=== PATIENT | female | born 1955 | race Caucasian/White ===

== ENCOUNTER 2017-06-04 09:53 | Inpatient (IN) ==
[2017-06-04 11:08] LABS: Nucleated Red Blood Cells 0.4 /100 WBC (0)
[2017-06-04 11:09] LABS: Eosinophils # 0.1 K/mcL (0.0-0.6); Hematocrit 23.4 % (35.3-44.9); Lymphocytes # 1.5 K/mcL (0.6-4.6); Mean Corpuscular HGB Conc 27.8 g/dL (31.6-35.5); Mean Corpuscular Hemoglobin 20.8 pg (28.0-33.3); Mean Platelet Volume 9.4 fL (9.4-12.4); Platelet Count 438 K/mcL (140-400); Red Blood Count 3.12 M/mcL (3.82-4.97); Red Cell Distribution Width 17.8 % (11.5-14.5)
--- NOTE | 2017-06-04 11:10 | Emergency Department Note ---
Disposition Clinical Impression: Severe anemia Disposition: Still a Patient Referrals: Natty Cordon CNP [Primary Care Provider] - Forms: ED Satisfaction Letter General Adult HPI - General Chief complaint: ED Recheck/Abnormal Lab/Rx Stated complaint: "needs transfusion" Time Seen by Provider: 06/04/17 09:54 Source: patient Limitations: no limitations Nursing Notes Reviewed: Yes Vital Signs Reviewed: Yes - History of Present Illness Pain Scale: 0 - Related Data Home Medications Medication Instructions Recorded Confirmed Aspirin [Lo-Dose Aspirin EC] 81 mg PO DAILY 06/04/17 06/04/17 Atorvastatin [Lipitor] 10 mg PO HS 06/04/17 06/04/17 Calcium Carbonate/Vitamin D3 1 tab PO DAILY 06/04/17 06/04/17 [Calcium 500 mg Chewable Tablet] Cranberry 500 mg PO DAILY 06/04/17 06/04/17 Mv,Fe,Min/Lutein [A Thru Z Select 1 tab PO DAILY 06/04/17 06/04/17 Women's Tablet] [place]-3/Dha/Epa/Fish Oil [Fish Oil 1 cap PO DAILY 06/04/17 06/04/17 1,000 mg Softgel] Allergies Allergy/AdvReac Type Severity Reaction Status Date / Time naproxen AdvReac Vomiting Verified 06/04/17 12:32 Blood Past Medical History - Past Medical History Medical history: Reports: hyperlipidemia, hypertension Psychiatric history: Reports: no psych history - Social History Smoking Status: Never smoker Smokeless Tobacco Status: No Alcohol use: Reports: none Drug use: Reports: none Physical Exam - General Limitations: no limitations General appearance: alert, appears intoxicated Course Vital Signs Temperature 98.3 F 06/04/17 10:09 Pulse Rate 82 06/04/17 10:09 Respiratory Rate 18 06/04/17 10:09 Blood Pressure 162/77 06/04/17 10:09 O2 Sat by Pulse Oximetry 97 06/04/17 10:09 Temperature 98.6 F 06/04/17 13:13 Pulse Rate 73 06/04/17 13:13 Respiratory Rate 18 06/04/17 13:13 Blood Pressure 164/89 06/04/17 13:13 O2 Sat by Pulse Oximetry 99 06/04/17 13:13 Oxygen Delivery Oxygen Delivery Room Air Medical Decision Making - MDM Narrative Medical decision making narrative: This documentation is done with the assistance of Dragon dictation. Despite efforts made to ensure accuracy, there may be inaccuracies in buffer chrome or spelling and typographical errors. Patient comes in today with need for transfusion. Had blood count drawn in her doctor's office and hemoglobin was below 7. Police had this happen in the past but is not certain why. She no history of GI bleeding per her. No trauma. Regular workup on her order blood and then she will need admission. She is in agreement with this plan. She is stable at this time. Abdomen/Pelvis CT 06/04/17 11:19 IMPRESSION: 1. No acute findings within the abdomen or pelvis. Colonic diverticulosis with no acute features. No CT evidence of appendicitis. 2. Moderate-sized hiatal hernia. 3. Previous hysterectomy. D/ / 06/04/2017 13:11:31 Ashish Reyna MD / jeevan Interpreting Provider: Ashish Reyna MD CT is completed and shows no acute pathology. Reglan bring her into the hospital to finish her transfusion and further workup for GI bleeding. She is in agreement with this plan. She is tolerating the blood at this point is stable. - Lab Data Result diagrams: 06/04/17 10:44 06/04/17 10:44 Lab Results 06/04/17 06/04/17 06/04/17 Range/Units 10:44 10:44 10:44 WBC 5.2 (4.3-11.1) K/mcL RBC 3.12 L (3.82-4.97) M/mcL Hgb 6.5 L (11.5-15.4) g/dL Hct 23.4 L (35.3-44.9) % MCV 75.0 L (83.0-100.0) fL MCH 20.8 L (28.0-33.3) pg MCHC 27.8 L (31.6-35.5) g/dL RDW 17.8 H (11.5-14.5) % Plt Count 438 H (140-400) K/mcL MPV 9.4 (9.4-12.4) fL Immature Gran % Test Not Performed Seg Neutrophils % 66.0 % Lymphocytes % 28.0 % Monocytes % 4.0 % Eosinophils % 2.0 % Basophils % Test Not Performed Neutrophils # 3.4 (1.6-8.9) K/mcL Lymphocytes # 1.5 (0.6-4.6) K/mcL Monocytes # 0.2 (0.0-1.3) K/mcL Eosinophils # 0.1 (0.0-0.6) K/mcL Basophils # Test Not Performed Nucleated RBCs/100 WBC 0.4 H (0) /100 WBC Platelet Estimate Slight increase H (Normal) Polychromasia 1+ A (Not Present) Hypochromasia Present A (Not Present) Anisocytosis 1+ A (Not Present) Microcytosis Present A (Not Present) Sodium 140 (136-145) mEq/L Potassium 3.4 L (3.5-5.1) mEq/L Chloride 107 (98-107) mEq/L Carbon Dioxide 25 (23-29) mEq/L BUN 17 (8-23) mg/dL Creatinine 0.72 (0.60-1.20) mg/dL Est GFR ( Amer) > 60 (> 60) Est GFR (Non-Af Amer) > 60 (> 60) BUN/Creatinine Ratio 24 (6-26) Glucose 124 H (70-105) mg/dL Calculated Osmolality 293 (280-300) Calcium 9.0 (8.6-10.3) mg/dL Troponin I < 0.03 (< 0.04) ng/mL Urine Color (Yellow) Urine Clarity (Clear) Urine pH (5.0-8.0) pH Units Ur Specific [place] (1.010-1.025) Urine Protein (Neg-Trace) mg/dL Urine Glucose (UA) (Normal) mg/dL Urine Ketones (Negative) mg/dL Urine Blood (Negative) Urine Nitrite (Negative) Urine Bilirubin (Negative) Urine Urobilinogen (Normal) mg/dL Ur Leukocyte Esterase (Negative) Urine Microscopic RBC (0-3) per hpf Urine Microscopic WBC (0-3) per hpf Ur Squamous Epith Cells (None-Few) per lpf Urine Bacteria (None-Few) per hpf Hyaline Casts (None-Few) per lpf Blood Type A POSITIVE Antibody Screen NEGATIVE Crossmatch See Detail 06/04/17 Range/Units 12:05 WBC (4.3-11.1) K/mcL RBC (3.82-4.97) M/mcL Hgb (11.5-15.4) g/dL Hct (35.3-44.9) % MCV (83.0-100.0) fL MCH (28.0-33.3) pg MCHC (31.6-35.5) g/dL RDW (11.5-14.5) % Plt Count (140-400) K/mcL MPV (9.4-12.4) fL Immature Gran % Seg Neutrophils % % Lymphocytes % % Monocytes % % Eosinophils % % Basophils % Neutrophils # (1.6-8.9) K/mcL Lymphocytes # (0.6-4.6) K/mcL Monocytes # (0.0-1.3) K/mcL Eosinophils # (0.0-0.6) K/mcL Basophils # Nucleated RBCs/100 WBC (0) /100 WBC Platelet Estimate (Normal) Polychromasia (Not Present) Hypochromasia (Not Present) Anisocytosis (Not Present) Microcytosis (Not Present) Sodium (136-145) mEq/L Potassium (3.5-5.1) mEq/L Chloride (98-107) mEq/L Carbon Dioxide (23-29) mEq/L BUN (8-23) mg/dL Creatinine (0.60-1.20) mg/dL Est GFR ( Amer) (> 60) Est GFR (Non-Af Amer) (> 60) BUN/Creatinine Ratio (6-26) Glucose (70-105) mg/dL Calculated Osmolality (280-300) Calcium (8.6-10.3) mg/dL Troponin I (< 0.04) ng/mL Urine Color Yellow (Yellow) Urine Clarity Clear (Clear) Urine pH 7.0 (5.0-8.0) pH Units Ur Specific [place] 1.010 (1.010-1.025) Urine Protein Negative (Neg-Trace) mg/dL Urine Glucose (UA) Normal (Normal) mg/dL Urine Ketones Negative (Negative) mg/dL Urine Blood Negative (Negative) Urine Nitrite Negative (Negative) Urine Bilirubin Negative (Negative) Urine Urobilinogen Normal (Normal) mg/dL Ur Leukocyte Esterase Small H (Negative) Urine Microscopic RBC 0-3 (0-3) per hpf Urine Microscopic WBC 0-3 (0-3) per hpf Ur Squamous Epith Cells Many H (None-Few) per lpf Urine Bacteria None Seen (None-Few) per hpf Hyaline Casts None Seen (None-Few) per lpf Blood Type Antibody Screen Crossmatch Critical Care Time Critical Care Time: Yes Total Critical Care Time: 35 Attestation: Critical care is excluding any separately billable procedures. Attestation Statement - Attestation Attestation: I examined this patient and my medical decision-making was reviewed with the Resident Physician. I agree with the documented findings, disposition and treatment plan as described except to the extent set forth below. Patient seen and evaluated by Dr. Gonzalez and myself, I agree with his evaluation and management plan, I supervisd the care of the patient's stay.
[2017-06-04 11:17] LABS: Hemoglobin 6.5 g/dL (11.5-15.4)
--- NOTE | 2017-06-04 11:17 | Emergency Department Note ---
Disposition Clinical Impression: Severe anemia Disposition: Admitted As Inpatient Condition: Fair Referrals: Natty Cordon CNP [Primary Care Provider] - Forms: ED Satisfaction Letter Time of Disposition: 14:27 Recheck wound or abnormal lab - General Chief Complaint: ED Recheck/Abnormal Lab/Rx Stated Complaint: "needs transfusion" Time Seen by Provider: 06/04/17 09:54 Source: patient Limitations: no limitations Nursing Notes Reviewed: Yes Vital Signs Reviewed: Yes - History of Present Illness HPI Narrative: Patient is a 62-year-old female who complains of being called by her PCP Natty Cordon CNP contact her today to inform her that her hemoglobin was 6.2. Patient has a prior history of anemia back in March that do not require transfusion, and patient did require transfusions back in 2011 after her orthopedic knee surgeries. Patient states she has never been seen by hematology to workup her history of anemia in the past. Patient states she has been having some lower back pain is worse when bending over across her lower back since March when her anemia started. Patient noticed that she has had some dark-colored stools about a month ago on multiple separate occasions. But none recently. Patient has a history for hypertension, hypercholesterolemia. Patient is a history of colonoscopy 8 years ago that showed polyps and diverticulosis. - Related Data Home Medications Medication Instructions Recorded Confirmed Aspirin [Lo-Dose Aspirin EC] 81 mg PO DAILY 06/04/17 06/04/17 Atorvastatin [Lipitor] 10 mg PO HS 06/04/17 06/04/17 Calcium Carbonate/Vitamin D3 1 tab PO DAILY 06/04/17 06/04/17 [Calcium 500 mg Chewable Tablet] Cranberry 500 mg PO DAILY 06/04/17 06/04/17 Mv,Fe,Min/Lutein [A Thru Z Select 1 tab PO DAILY 06/04/17 06/04/17 Women's Tablet] [place]-3/Dha/Epa/Fish Oil [Fish Oil 1 cap PO DAILY 06/04/17 06/04/17 1,000 mg Softgel] Allergies Allergy/AdvReac Type Severity Reaction Status Date / Time naproxen AdvReac Vomiting Verified 06/04/17 12:32 Blood All systems ED: reviewed and negative except as stated. Review of Systems: As Per HPI Constitutional: Reports: weakness. Denies: fever ENT ED: Denies: congestion Cardiovascular: Denies: chest pain, palpitations Respiratory: Reports: dyspnea Genitourinary: Denies: urgency, dysuria Musculoskeletal: Reports: back pain Endocrine: Reports: fatigue Past Medical History - Past Medical History Attestation: Yes The following information was validated with the patient. Source: patient, nursing notes reviewed Medical history: Reports: hyperlipidemia, hypertension Psychiatric history: Reports: no psych history - Social History Smoking Status: Never smoker Smokeless Tobacco Status: No Alcohol use: Reports: none Drug use: Reports: none Physical Exam Vital Signs Temperature 98.3 F 06/04/17 10:09 Pulse Rate 82 06/04/17 10:09 Respiratory Rate 18 06/04/17 10:09 Blood Pressure 162/77 06/04/17 10:09 O2 Sat by Pulse Oximetry 97 06/04/17 10:09 Temperature 98.3 F 06/04/17 10:09 Pulse Rate 77 06/04/17 10:54 Respiratory Rate 18 06/04/17 10:54 Blood Pressure 163/81 06/04/17 10:54 O2 Sat by Pulse Oximetry 99 06/04/17 10:54 Oxygen Delivery Oxygen Delivery Room Air CONSTITUTIONAL: Well-appearing; well-nourished; A&O X 3, in no apparent distress. Patient has some mild pallor HEAD: Normocephalic; atraumatic EYES: PERRL, no scleral icterus NOSE: The nose is normal in appearance without rhinorrhea NECK: No JVD or distended neck veins RESP: Normal chest excursion with respiration; breath sounds clear and equal bilaterally; no wheezes, rhonchi, or rales CARD: Regular rhythm, without murmurs, rub or gallop ABD: Non-distended; non-tender, soft, without rigidity, rebound or guarding,no pulsatile mass CHEST: No pain with palpation SKIN: Normal for age and race; warm and dry without diaphoresis ; no apparent lesions EXTREMITIES: Pulses are 2 plus and equal times 4 extremities, no peripheral edema or calf muscle pain capillary refill greater than 2 - General Limitations: no limitations General appearance: alert, appears intoxicated Course - Reevaluation(s) Reevaluation #1: Patient is currently comfortable. No complaints at this time. Patient's blood products have been ordered. Time: 11:50 Reevaluation #2: Hemoccult test negative for GI bleed. Time: 11:57 Reevaluation #3: Patient is currently receiving second unit of blood. Time: 14:16 Vital Signs Temperature 98.3 F 06/04/17 10:09 Pulse Rate 82 06/04/17 10:09 Respiratory Rate 18 06/04/17 10:09 Blood Pressure 162/77 06/04/17 10:09 O2 Sat by Pulse Oximetry 97 06/04/17 10:09 Temperature 98.4 F 06/04/17 13:48 Pulse Rate 73 06/04/17 13:48 Respiratory Rate 18 06/04/17 13:48 Blood Pressure 193/94 06/04/17 13:48 O2 Sat by Pulse Oximetry 100 06/04/17 13:48 Oxygen Delivery Oxygen Delivery Room Air Recheck wound or abnormal lab - MDM Narrative Medical decision making narrative: Patient has recurring episodes of anemia is never worked up. Patient also complains of some periodic episodes of bloody stools. Patient will require transfusion here in the ED for her severe anemia, patient also concerning for either GI bleed or abdominal cancer and will receive appropriate workup. Patient's labs show a hemoglobin of 6.5. Patient is currently receiving blood transfusion 2 units RBCs. Patient also received 1 L IV normal saline Patient's CT abdomen and pelvis only positive for a hiatal hernia. Patient is otherwise comfortable. Patient patient may be having intermittent GI bleeding but currently has a negative workup. Currently recommend admission and further evaluation concerning patient's acute severe anemia. Patient understands agrees to treatment plan for admission Dr. Trivedi the hospitalist as accepted patient for admission. Patient is currently on her second unit of blood. 80 mg IV Protonix also started. - Lab Data Lab results reviewed: Yes I reviewed the patient's lab results. Lab results narrative: Short CBC 06/04/17 Range/Units 10:44 WBC 5.2 (4.3-11.1) K/mcL Hgb 6.5 L (11.5-15.4) g/dL Hct 23.4 L (35.3-44.9) % Plt Count 438 H (140-400) K/mcL Neutrophils # 3.4 (1.6-8.9) K/mcL BMP 06/04/17 Range/Units 10:44 Sodium 140 (136-145) mEq/L Potassium 3.4 L (3.5-5.1) mEq/L Chloride 107 (98-107) mEq/L Carbon Dioxide 25 (23-29) mEq/L BUN 17 (8-23) mg/dL Creatinine 0.72 (0.60-1.20) mg/dL Glucose 124 H (70-105) mg/dL Calcium 9.0 (8.6-10.3) mg/dL Cardiac Enzymes 06/04/17 Range/Units 10:44 Troponin I < 0.03 (< 0.04) ng/mL Urine 06/04/17 Range/Units 12:05 Urine Color Yellow (Yellow) Urine Clarity Clear (Clear) Urine pH 7.0 (5.0-8.0) pH Units Ur Specific [place] 1.010 (1.010-1.025) Urine Protein Negative (Neg-Trace) mg/dL Urine Glucose (UA) Normal (Normal) mg/dL Result diagrams: 06/04/17 10:44 06/04/17 10:44 Lab Results 06/04/17 06/04/17 06/04/17 Range/Units 10:44 10:44 10:44 WBC 5.2 (4.3-11.1) K/mcL RBC 3.12 L (3.82-4.97) M/mcL Hgb 6.5 L (11.5-15.4) g/dL Hct 23.4 L (35.3-44.9) % MCV 75.0 L (83.0-100.0) fL MCH 20.8 L (28.0-33.3) pg MCHC 27.8 L (31.6-35.5) g/dL RDW 17.8 H (11.5-14.5) % Plt Count 438 H (140-400) K/mcL MPV 9.4 (9.4-12.4) fL Immature Gran % Test Not Performed Seg Neutrophils % 66.0 % Lymphocytes % 28.0 % Monocytes % 4.0 % Eosinophils % 2.0 % Basophils % Test Not Performed Neutrophils # 3.4 (1.6-8.9) K/mcL Lymphocytes # 1.5 (0.6-4.6) K/mcL Monocytes # 0.2 (0.0-1.3) K/mcL Eosinophils # 0.1 (0.0-0.6) K/mcL Basophils # Test Not Performed Nucleated RBCs/100 WBC 0.4 H (0) /100 WBC Platelet Estimate Slight increase H (Normal) Polychromasia 1+ A (Not Present) Hypochromasia Present A (Not Present) Anisocytosis 1+ A (Not Present) Microcytosis Present A (Not Present) Sodium 140 (136-145) mEq/L Potassium 3.4 L (3.5-5.1) mEq/L Chloride 107 (98-107) mEq/L Carbon Dioxide 25 (23-29) mEq/L BUN 17 (8-23) mg/dL Creatinine 0.72 (0.60-1.20) mg/dL Est GFR ( Amer) > 60 (> 60) Est GFR (Non-Af Amer) > 60 (> 60) BUN/Creatinine Ratio 24 (6-26) Glucose 124 H (70-105) mg/dL Calculated Osmolality 293 (280-300) Calcium 9.0 (8.6-10.3) mg/dL Troponin I < 0.03 (< 0.04) ng/mL Urine Color (Yellow) Urine Clarity (Clear) Urine pH (5.0-8.0) pH Units Ur Specific [place] (1.010-1.025) Urine Protein (Neg-Trace) mg/dL Urine Glucose (UA) (Normal) mg/dL Urine Ketones (Negative) mg/dL Urine Blood (Negative) Urine Nitrite (Negative) Urine Bilirubin (Negative) Urine Urobilinogen (Normal) mg/dL Ur Leukocyte Esterase (Negative) Urine Microscopic RBC (0-3) per hpf Urine Microscopic WBC (0-3) per hpf Ur Squamous Epith Cells (None-Few) per lpf Urine Bacteria (None-Few) per hpf Hyaline Casts (None-Few) per lpf Blood Type A POSITIVE Antibody Screen NEGATIVE Crossmatch See Detail 06/04/17 Range/Units 12:05 WBC (4.3-11.1) K/mcL RBC (3.82-4.97) M/mcL Hgb (11.5-15.4) g/dL Hct (35.3-44.9) % MCV (83.0-100.0) fL MCH (28.0-33.3) pg MCHC (31.6-35.5) g/dL RDW (11.5-14.5) % Plt Count (140-400) K/mcL MPV (9.4-12.4) fL Immature Gran % Seg Neutrophils % % Lymphocytes % % Monocytes % % Eosinophils % % Basophils % Neutrophils # (1.6-8.9) K/mcL Lymphocytes # (0.6-4.6) K/mcL Monocytes # (0.0-1.3) K/mcL Eosinophils # (0.0-0.6) K/mcL Basophils # Nucleated RBCs/100 WBC (0) /100 WBC Platelet Estimate (Normal) Polychromasia (Not Present) Hypochromasia (Not Present) Anisocytosis (Not Present) Microcytosis (Not Present) Sodium (136-145) mEq/L Potassium (3.5-5.1) mEq/L Chloride (98-107) mEq/L Carbon Dioxide (23-29) mEq/L BUN (8-23) mg/dL Creatinine (0.60-1.20) mg/dL Est GFR ( Amer) (> 60) Est GFR (Non-Af Amer) (> 60) BUN/Creatinine Ratio (6-26) Glucose (70-105) mg/dL Calculated Osmolality (280-300) Calcium (8.6-10.3) mg/dL Troponin I (< 0.04) ng/mL Urine Color Yellow (Yellow) Urine Clarity Clear (Clear) Urine pH 7.0 (5.0-8.0) pH Units Ur Specific [place] 1.010 (1.010-1.025) Urine Protein Negative (Neg-Trace) mg/dL Urine Glucose (UA) Normal (Normal) mg/dL Urine Ketones Negative (Negative) mg/dL Urine Blood Negative (Negative) Urine Nitrite Negative (Negative) Urine Bilirubin Negative (Negative) Urine Urobilinogen Normal (Normal) mg/dL Ur Leukocyte Esterase Small H (Negative) Urine Microscopic RBC 0-3 (0-3) per hpf Urine Microscopic WBC 0-3 (0-3) per hpf Ur Squamous Epith Cells Many H (None-Few) per lpf Urine Bacteria None Seen (None-Few) per hpf Hyaline Casts None Seen (None-Few) per lpf Blood Type Antibody Screen Crossmatch - Radiology Data Radiology results reviewed: Yes I reviewed the patient's radiology results. Abdomen/Pelvis CT 06/04/17 11:19 IMPRESSION: 1. No acute findings within the abdomen or pelvis. Colonic diverticulosis with no acute features. No CT evidence of appendicitis. 2. Moderate-sized hiatal hernia. 3. Previous hysterectomy. D/ / 06/04/2017 13:11:31 Ashish Reyna MD / jeevan Interpreting Provider: Ashish Reyna MD - EKG Data EKG attestation: Yes I reviewed and interpreted this EKG. EKG results narrative: EKG taken 06/04/2017 at 1019 hrs. as sinus rhythm at a rate of 82 bpm, with no acute ST elevations or depressions any leads, no QRS widening or QT prolongation. T-wave inversion in lead 3. Previous EKG for comparison taken showed the same morphology and waveform seen today.
[2017-06-04] MEDS ORDERED: Isovue-370 500 ML INFUS..BTL IV ONE (11:18)
[2017-06-04 11:27] LABS: BUN/Creatinine Ratio 24 (6-26); Blood Urea Nitrogen 17 mg/dL (8-23); Carbon Dioxide 25 mEq/L (23-29); Chloride 107 mEq/L (98-107); Glucose 124 mg/dL (70-105); Osmolality,Calculated 293 (280-300); Potassium 3.4 mEq/L (3.5-5.1); Sodium 140 mEq/L (136-145); Troponin I < 0.03 ng/mL (< 0.04); eGFR For African Americans > 60 (> 60); eGFR For Non-African Americans > 60 (> 60)
[2017-06-04] MEDS ORDERED: 0.9 % Sodium Chloride 500 ML ONE ×2 (12:02→14:11)
[2017-06-04 12:16] LABS: Monocytes # 0.2 K/mcL (0.0-1.3); Neutrophils # 3.4 K/mcL (1.6-8.9)
[2017-06-04 12:25] LABS: Bilirubin,Urine Negative (Negative); Blood,Urine Negative (Negative); Clarity,Urine Clear (Clear); Color,Urine Yellow (Yellow); Glucose,Urine (UA) Normal (Normal); Ketones,Urine Negative (Negative); Leukocyte Esterase,Urine Small (Negative); Nitrite,Urine Negative (Negative); Protein,Urine Negative (Neg-Trace); Urobilinogen,Urine Normal (Normal)
[2017-06-04 12:29] LABS: Bacteria,Urine None Seen per hpf (None-Few); Hyaline Casts,Urine None Seen per lpf (None-Few); RBC,Urine 0-3 per hpf (0-3); Squamous Epithelial Cell,Urine Many per lpf (None-Few); WBC,Urine 0-3 per hpf (0-3)
[2017-06-04 12:35] LABS: Anisocytosis 1+ (Not Present); Hypochromasia Present (Not Present); Microcytosis Present (Not Present); Polychromasia 1+ (Not Present)
--- NOTE | 2017-06-04 13:27 | Emergency Department Note ---
Disposition Clinical Impression: Severe anemia Disposition: Still a Patient Referrals: Natty Cordon CNP [Primary Care Provider] - Forms: ED Satisfaction Letter General Adult HPI - General Chief complaint: ED Recheck/Abnormal Lab/Rx Stated complaint: "needs transfusion" Time Seen by Provider: 06/04/17 09:54 Source: patient Limitations: no limitations - History of Present Illness Pain Scale: 0 - Related Data Home Medications Medication Instructions Recorded Confirmed Aspirin [Lo-Dose Aspirin EC] 81 mg PO DAILY 06/04/17 06/04/17 Atorvastatin [Lipitor] 10 mg PO HS 06/04/17 06/04/17 Calcium Carbonate/Vitamin D3 1 tab PO DAILY 06/04/17 06/04/17 [Calcium 500 mg Chewable Tablet] Cranberry 500 mg PO DAILY 06/04/17 06/04/17 Mv,Fe,Min/Lutein [A Thru Z Select 1 tab PO DAILY 06/04/17 06/04/17 Women's Tablet] [place]-3/Dha/Epa/Fish Oil [Fish Oil 1 cap PO DAILY 06/04/17 06/04/17 1,000 mg Softgel] Allergies Allergy/AdvReac Type Severity Reaction Status Date / Time naproxen AdvReac Vomiting Verified 06/04/17 12:32 Blood Constitutional: Reports: weakness. Denies: fever ENT ED: Denies: congestion Cardiovascular: Denies: chest pain, palpitations Respiratory: Reports: dyspnea Genitourinary: Denies: urgency, dysuria Musculoskeletal: Reports: back pain Endocrine: Reports: fatigue Past Medical History - Past Medical History Medical history: Reports: hyperlipidemia, hypertension Psychiatric history: Reports: no psych history - Social History Smoking Status: Never smoker Smokeless Tobacco Status: No Alcohol use: Reports: none Drug use: Reports: none Physical Exam - General Limitations: no limitations General appearance: alert, appears intoxicated Course Vital Signs Temperature 98.3 F 06/04/17 10:09 Pulse Rate 82 06/04/17 10:09 Respiratory Rate 18 06/04/17 10:09 Blood Pressure 162/77 06/04/17 10:09 O2 Sat by Pulse Oximetry 97 06/04/17 10:09 Temperature 98.6 F 06/04/17 13:13 Pulse Rate 73 06/04/17 13:13 Respiratory Rate 18 06/04/17 13:13 Blood Pressure 164/89 06/04/17 13:13 O2 Sat by Pulse Oximetry 99 06/04/17 13:13 Oxygen Delivery Oxygen Delivery Room Air Procedures - Ultrasound-Other Narrative: US STUDY: Abdominal aorta INDICATION: Back pain, anemia. Discussion of risks, benefits and alternatives with pateint and concsent verbally obtained prior to study. Time out Performed. FINDINGS: The abdominal aorta was traced from the subxiphoid area to the iliac arteries bilaterally, is measured at its maximal point just above the iliac arteries at 2.2 x 1.5 cm, there is no evidence of aneurysm or pseudoaneurysm. IMPRESSON: Normal abdominal aorta measurements 1.5 x 2.2 cm Performed and Interpretted by myself Dr Ortega with Attending Physician Dr. Mercedes Medical Decision Making - MDM Narrative Medical decision making narrative: Ultrasound procedure note only, please see resident/PRIETO/attending note for history, ROS, physical exam, medical decision making and plan. - Lab Data Result diagrams: 06/04/17 10:44 06/04/17 10:44 Lab Results 06/04/17 06/04/17 06/04/17 Range/Units 10:44 10:44 10:44 WBC 5.2 (4.3-11.1) K/mcL RBC 3.12 L (3.82-4.97) M/mcL Hgb 6.5 L (11.5-15.4) g/dL Hct 23.4 L (35.3-44.9) % MCV 75.0 L (83.0-100.0) fL MCH 20.8 L (28.0-33.3) pg MCHC 27.8 L (31.6-35.5) g/dL RDW 17.8 H (11.5-14.5) % Plt Count 438 H (140-400) K/mcL MPV 9.4 (9.4-12.4) fL Immature Gran % Test Not Performed Seg Neutrophils % 66.0 % Lymphocytes % 28.0 % Monocytes % 4.0 % Eosinophils % 2.0 % Basophils % Test Not Performed Neutrophils # 3.4 (1.6-8.9) K/mcL Lymphocytes # 1.5 (0.6-4.6) K/mcL Monocytes # 0.2 (0.0-1.3) K/mcL Eosinophils # 0.1 (0.0-0.6) K/mcL Basophils # Test Not Performed Nucleated RBCs/100 WBC 0.4 H (0) /100 WBC Platelet Estimate Slight increase H (Normal) Polychromasia 1+ A (Not Present) Hypochromasia Present A (Not Present) Anisocytosis 1+ A (Not Present) Microcytosis Present A (Not Present) Sodium 140 (136-145) mEq/L Potassium 3.4 L (3.5-5.1) mEq/L Chloride 107 (98-107) mEq/L Carbon Dioxide 25 (23-29) mEq/L BUN 17 (8-23) mg/dL Creatinine 0.72 (0.60-1.20) mg/dL Est GFR ( Amer) > 60 (> 60) Est GFR (Non-Af Amer) > 60 (> 60) BUN/Creatinine Ratio 24 (6-26) Glucose 124 H (70-105) mg/dL Calculated Osmolality 293 (280-300) Calcium 9.0 (8.6-10.3) mg/dL Troponin I < 0.03 (< 0.04) ng/mL Urine Color (Yellow) Urine Clarity (Clear) Urine pH (5.0-8.0) pH Units Ur Specific [place] (1.010-1.025) Urine Protein (Neg-Trace) mg/dL Urine Glucose (UA) (Normal) mg/dL Urine Ketones (Negative) mg/dL Urine Blood (Negative) Urine Nitrite (Negative) Urine Bilirubin (Negative) Urine Urobilinogen (Normal) mg/dL Ur Leukocyte Esterase (Negative) Urine Microscopic RBC (0-3) per hpf Urine Microscopic WBC (0-3) per hpf Ur Squamous Epith Cells (None-Few) per lpf Urine Bacteria (None-Few) per hpf Hyaline Casts (None-Few) per lpf Blood Type A POSITIVE Antibody Screen NEGATIVE Crossmatch See Detail 06/04/17 Range/Units 12:05 WBC (4.3-11.1) K/mcL RBC (3.82-4.97) M/mcL Hgb (11.5-15.4) g/dL Hct (35.3-44.9) % MCV (83.0-100.0) fL MCH (28.0-33.3) pg MCHC (31.6-35.5) g/dL RDW (11.5-14.5) % Plt Count (140-400) K/mcL MPV (9.4-12.4) fL Immature Gran % Seg Neutrophils % % Lymphocytes % % Monocytes % % Eosinophils % % Basophils % Neutrophils # (1.6-8.9) K/mcL Lymphocytes # (0.6-4.6) K/mcL Monocytes # (0.0-1.3) K/mcL Eosinophils # (0.0-0.6) K/mcL Basophils # Nucleated RBCs/100 WBC (0) /100 WBC Platelet Estimate (Normal) Polychromasia (Not Present) Hypochromasia (Not Present) Anisocytosis (Not Present) Microcytosis (Not Present) Sodium (136-145) mEq/L Potassium (3.5-5.1) mEq/L Chloride (98-107) mEq/L Carbon Dioxide (23-29) mEq/L BUN (8-23) mg/dL Creatinine (0.60-1.20) mg/dL Est GFR ( Amer) (> 60) Est GFR (Non-Af Amer) (> 60) BUN/Creatinine Ratio (6-26) Glucose (70-105) mg/dL Calculated Osmolality (280-300) Calcium (8.6-10.3) mg/dL Troponin I (< 0.04) ng/mL Urine Color Yellow (Yellow) Urine Clarity Clear (Clear) Urine pH 7.0 (5.0-8.0) pH Units Ur Specific [place] 1.010 (1.010-1.025) Urine Protein Negative (Neg-Trace) mg/dL Urine Glucose (UA) Normal (Normal) mg/dL Urine Ketones Negative (Negative) mg/dL Urine Blood Negative (Negative) Urine Nitrite Negative (Negative) Urine Bilirubin Negative (Negative) Urine Urobilinogen Normal (Normal) mg/dL Ur Leukocyte Esterase Small H (Negative) Urine Microscopic RBC 0-3 (0-3) per hpf Urine Microscopic WBC 0-3 (0-3) per hpf Ur Squamous Epith Cells Many H (None-Few) per lpf Urine Bacteria None Seen (None-Few) per hpf Hyaline Casts None Seen (None-Few) per lpf Blood Type Antibody Screen Crossmatch
[2017-06-04] MEDS ORDERED: Pantoprazole 40 MG VIAL IVP ONE (14:21)
[2017-06-04] MEDS ORDERED: Naloxone 0.4 MG/ML INJ IVP PRN (15:42)
[2017-06-04] MEDS ORDERED: Acetaminophen 325 MG TABLET PO PRN (15:42)
[2017-06-04] MEDS ORDERED: Furosemide 20 MG/2 ML VIAL IVP ONE ×2 (15:49→16:11)
[2017-06-04 16:18] LABS: Hematocrit 29.2 % (35.3-44.9)
--- NOTE | 2017-06-04 16:27 | Internal Med History&Physical ---
Date of Encounter: 06/04/17 Time of Encounter: 14:15 Internal Medicine - H&P: HPI Chief complaint: Abnormal labs/Low Hgb Admitted From: Emergency Dept Plans for Post Hospital Care: Home History of present illness: Ms. Maharaj is a 62 year old female w/PMH of HLD and HTN presents from the ED w/ CC of low Hgb discovered at pts. PCP office. Pt. was sent to ED d/t Hgb of 6.5 today. Pt. reports SOB and weakness for the past week. Also reports episodes x2 of melanotic stool one month ago. Pt. states she has been having lower back pain and left abdominal pain for several weeks as well. Denies hx of anemia, but reports need for transfusion post-orthopedic knee surgery in 2011. Reports colonoscopy approximately 8 years ago which showed polyps and diverticulosis. Denies recent illness, fever, chills, nausea, vomiting, changes in vision, headache, unusual bleeding, diarrhea, constipation, numbness, tingling, dizziness, lightheadedness, pre-syncope, or syncope. Past Med Surg Social Fam HX - Past Medical History Source: patient, old records reviewed, obtained from family Medical history: hyperlipidemia, hypertension Psychiatric history: no psych history - Past Surgical History Surgical History: hysterectomy, knee replacement - Social History Smoking Status: Never smoker Smokeless Tobacco Status: No Alcohol use: none Drug use: none Current living situation: Home, With Family Activity Level: Independent ambulation Recent Out of Country Travel Within the Last 8 Weeks: No Exposure or Possible Exposure to Illness During Travel: No - Family History Father Race: Family Member Ethnicity: Non- Living Status: Age at : 80 Cause of : CHF Hx Family Cardiac Disorders: Yes (CHF, HLD, HTN) Hx Family Respiratory Disorders: Yes (Lung cancer) Hx Family Cancer: Yes (Lung) Hx Family Endocrine Disorder: Yes (DM) Mother Race: Family Member Ethnicity: Non- Living Status: Age at : 89 Cause of : Alzheimer's disease Hx Family Cardiac Disorders: Yes (HLD, HTN) Brother Race: Family Member Ethnicity: Non- Living Status: Still Living Hx Family Cardiac Disorders: Yes (CHF, HTN) Sister Race: Family Member Ethnicity: Non- Living Status: Still Living Hx Family Cardiac Disorders: Yes (HTN, HLD) Hx Family Endocrine Disorder: Yes (DM) Internal Medicine - H&P: Meds Aspirin [Lo-Dose Aspirin EC] 81 mg PO DAILY 06/04/17 [History] Atorvastatin [Lipitor] 10 mg PO HS 06/04/17 [History] Calcium Carbonate/Vitamin D3 [Calcium 500 mg Chewable Tablet] 1 tab PO DAILY 01/11 [History] Cranberry 500 mg PO DAILY 06/04/17 [History] Mv,Fe,Min/Lutein [A Thru Z Select Women's Tablet] 1 tab PO DAILY 06/04/17 [ History] [place]-3/Dha/Epa/Fish Oil [Fish Oil 1,000 mg Softgel] 1 cap PO DAILY 06/04/17 [ History] 3 Allergy/AdvReac Type Severity Reaction Status Date / Time naproxen AdvReac Vomiting Verified 06/04/17 12:32 Blood All Systems PM: A 10-system review of systems was performed and is negative for pertinent findings except as documented above in the HPI. - Constitutional Constitutional: as per HPI, fatigue, weakness, no chills, no fever(s), no night sweats - EENT Eyes: no change in vision, no discharge, no pain, no photophobia Ears: no ear discharge, no ear pain, no tinnitus Nose, mouth and throat: no dysphagia, no nasal discharge, no neck pain, no sore throat - Breasts Breasts: as per HPI - Cardiovascular Cardiovascular ROS IM: as per HPI, dyspnea, dyspnea on exertion, irregular heart rhythm (Pt. reports hx of heart murmur w/o anticoagulation), no chest pain , no diaphoresis, no lightheadedness, no palpitations, no syncope - Respiratory Respiratory: as per HPI, dyspnea, dyspnea on exertion, no cough, no wheezing, no excessive phlegm production - Gastrointestinal Gastrointestinal: melena (x2 one month ago), no abdominal pain (Left abdominal pain), no diarrhea, no hematemesis, no hematochezia, no nausea, no vomiting - Genitourinary Genitourinary: no change in urinary stream, no dysuria, no flank pain, no hematuria Menstruation: as per HPI, post hysterectomy - Musculoskeletal Musculoskeletal ROS IM: no numbness, no tingling - Integumentary Integumentary IM: no rash, no unusual bruising - Neurological Neurological ROS: as per HPI, weakness, no confusion, no convulsions, no focal weakness, no numbness, no tingling, no tremor(s) - Psychiatric Psychiatric: as per HPI - Endocrine Endocrine IM: as per HPI - Hematologic/Lymphatic Hematologic/Lymphatic: no easy bruising - Allergic/Immunologic Allergic/Immunologic: as per HPI - Constitutional Vitals: Temp Pulse Resp BP Pulse Ox 98.7 F 78 15 200/90 99 06/04/17 15:54 06/04/17 15:54 06/04/17 15:54 06/04/17 15:54 06/04/17 15:54 General appearance: Present: cooperative, A&O X 3, pleasant, no acute distress, obese, answers questions appropriately - Head Head exam: Present: atraumatic, normocephalic - Eye Eye exam: Present: PERRL, conjuntiva pink, sclera anicteric Pupils: Present: PERRL - ENT ENT exam: Present: normal exam - Neck Neck exam general surgery: Present: normal inspection, supple, trachea midline. Absent: lymphadenopathy - Respiratory Respiratory exam: Present: CTAB. Absent: accessory muscle use, rales, rhonchi, wheezes - Cardiovascular Cardiovascular exam: Present: RRR, +S1, +S2. Absent: diastolic murmur, gallop, rubs, systolic murmur - GI/Abdominal GI/Abdominal exam: Present: normal bowel sounds, soft, no peritoneal signs. Absent: distended, tenderness - Rectal Rectal exam: Present: deferred - Additional comments: exam deferred. - Extremities Exam Extremities exam: Present: warm, radial pulses palpable and symmetrical. Absent : calf tenderness, cyanotic, pedal edema - Back Exam Back exam: Present: normal inspection - Neurological Exam Neurological exam: Present: CN II-XII intact, oriented X3, no focal deficits. Absent: pronater drift, facial droop, speech deficit - Psychiatric Psychiatric exam: Present: normal affect, normal mood - Skin Skin exam: Present: dry, intact Internal Med - H&P Results - Labs CBC & Chem 7: 06/04/17 15:59 06/04/17 10:44 - EKG Data EKG shows normal: sinus rhythm - EKG Data Prior EKG available for review: yes EKG comments: 06/04/17 16:35 EKG dated 10/19/10 shows sinus rhythm with possible inferior infarct, age undetermined. Low QRS voltages in precordial leads. EKG dated 06/04/17 shows sinus rhythm without QRS voltage in precordial leads, possible right ventricular conduction delay, possible anterior myocardial infarction of indeterminate age. - Diagnostic Studies CT scan - abdomen Additional comments: Impressions Abdomen/Pelvis CT 06/04/17 11:19 IMPRESSION: 1. No acute findings within the abdomen or pelvis. Colonic diverticulosis with no acute features. No CT evidence of appendicitis. 2. Moderate-sized hiatal hernia. 3. Previous hysterectomy. D/ / 06/04/2017 13:11:31 Ashish Reyna MD / jeevan Interpreting Provider: Ashish Reyna MD - Assessment and plan (1) Severe anemia Current Visit: Yes Status: Acute Assessment and plan: Acute severe anemia w/Hgb of 6.5 today. Pt. denies hx of anemia. Reports melanotic stool x2 one month ago but denies current visible blood in stool. Fecal hemoccult ordered. H/H Q4HR. Pt. received one unit PRBCs in ED. Will order two more units w/20 mg lasix IVP ordered between each unit of PRBCs. Protonix 40 mg IVP BID. NPO status. GI consult ordered and discussed w/Dr. Carrillo and I appreciate the consult. Consult to Oncology Hematology ordered and discussed w/Caitlin Sauceda d/t pts. new onset of anemia and I appreciate the consult/recommendations. Monitor I&O. Plan is to scope pt. in a.m. Pt. and f/u labs to be monitored closely. Pt. discussed w/Dr. Trivedi who agrees w/plan of care. Pt. is high risk for further morbidity and decline based on current and severe onset of anemia, hx of melanotic stools, hx of transfusions post- surgery, and risk factors. Inpatient. (2) SOB (shortness of breath) Current Visit: Yes Status: Acute Assessment and plan: Acute SOB accompanying low Hgb. Denies home O2 use. Denies need for O2 on exam in ED. Supplemental O2 w/titration and SpO2 monitoring PRN. (3) Abdominal pain Current Visit: Yes Status: Acute Assessment and plan: Acute left upper quadrant abdominal pain that pt. states has been occurring for several weeks. Pt. reports two episodes of melanotic stools one month ago but denies visible blood in stool. Fecal hemoccult ordered. Pt. reports colonoscopy approximately 8 years ago which showed polyps and diverticulosis. GI consult ordered and discussed w/Dr. Carrillo w/plan to scope pt. in a.m. and I appreciate the consult and recommendations. NPO. Protonix 40 mg IVP BID. Zofran 4 mg IV push every 6 hour when necessary. Qualifiers: Abdominal location: left upper quadrant Qualified Code(s): R10.12 - Left upper quadrant pain (4) HTN (hypertension) Current Visit: Yes Status: Chronic Assessment and plan: Hx of chronic HTN. Monitor pt. and VS. Pt. is not currently on HTN medications. Will consider adding metoprolol or hydralazine if pt. becomes hypertensive. Qualifiers: Hypertension type: essential hypertension Qualified Code(s): I10 - Essential (primary) hypertension (5) HLD (hyperlipidemia) Current Visit: Yes Status: Chronic Assessment and plan: Hx of chronic HLD. Lipid panel in a.m. labs. Continue pts. Lipitor. Qualifiers: Hyperlipidemia type: pure hypercholesterolemia Qualified Code(s): E78.00 - Pure hypercholesterolemia, unspecified; E78.0 - Pure hypercholesterolemia (6) DVT prophylaxis Current Visit: Yes Status: Acute Assessment and plan: Bilateral SCDs on pts. LEs for DVT prophylaxis. - Time Spent With Patient Total time spent is greater than 50% in coordination of care (as documented) at patient's floor/unit and/or counseling patient: 25 - 35 minutes
[2017-06-04 16:28] LABS: % Iron Saturation 2 % (15-50); Iron 12 mcg/dL (50-170); Transferrin 400 mg/dL (203-362)
[2017-06-04 16:28] LABS: Hemoglobin 8.6 g/dL (11.5-15.4)
[2017-06-04] MEDS ORDERED: Ondansetron 4 MG/2 ML VIAL IVP PRN (16:52)
[2017-06-04] MEDS ORDERED: 0.9 % Sodium Chloride 250 ML ONE ×2 (17:21→21:38)
[2017-06-04] MEDS ORDERED: SODIUM CHLORIDE/NAHCO3/KCL/PEG 4,000 ML SOLN.RECON PO ONE (17:33)
[2017-06-05 03:17] LABS: Basophils # 0.1 K/mcL (0.0-0.2); Eosinophils # 0.1 K/mcL (0.0-0.6); Eosinophils % 1.6 %; Hematocrit 34.5 % (35.3-44.9); Hemoglobin 10.7 g/dL (11.5-15.4); Immature Granulocytes % 0.3 % (0-4); Lymphocytes # 1.5 K/mcL (0.6-4.6); Lymphocytes % 21.3 %; Mean Corpuscular Volume 77.5 fL (83.0-100.0); Mean Platelet Volume 9.4 fL (9.4-12.4); Monocytes # 0.5 K/mcL (0.0-1.3); Monocytes % 7.6 %; Neutrophils # 4.7 K/mcL (1.6-8.9); Platelet Count 384 K/mcL (140-400); Red Blood Count 4.45 M/mcL (3.82-4.97); Red Cell Distribution Width 18.1 % (11.5-14.5); Segmented Neutrophils % 68.2 %
[2017-06-05 03:28] LABS: INR 1.1; Prothrombin Time 11.4 Seconds (9.4-12.1)
[2017-06-05 03:31] LABS: Activated Partial Thrombo Time 28.1 Seconds (26.0-36.0)
[2017-06-05 03:39] LABS: Alanine Aminotransferase 15 Units/L (7-52); Albumin 4.7 g/dL (3.5-5.7); Alkaline Phosphatase 61 Units/L (34-104); Aspartate Amino Transferase 19 Units/L (13-39); BUN/Creatinine Ratio 17 (6-26); Bilirubin,Total 1.1 mg/dL (0.3-1.0); Blood Urea Nitrogen 12 mg/dL (8-23); Calcium 9.5 mg/dL (8.6-10.3); Carbon Dioxide 24 mEq/L (23-29); Chloride 108 mEq/L (98-107); Chol/HDL Ratio 2.9 (0-4.9); Cholesterol 195 mg/dL (< 200); Globulin 2.4 g/dL (2.4-3.5); Glucose 112 mg/dL (70-105); HDL Cholesterol 67 mg/dL (40-59); LDL Cholesterol,Calculated 103 mg/dL (0-99); Magnesium 2.3 mg/dL (1.6-2.6); Osmolality,Calculated 293 (280-300); Potassium 3.6 mEq/L (3.5-5.1); Sodium 141 mEq/L (136-145); Total Protein 7.1 g/dL (6.4-8.9); Triglycerides 124 mg/dL (< 150); eGFR For African Americans > 60 (> 60); eGFR For Non-African Americans > 60 (> 60)
[2017-06-05] MEDS ORDERED: Furosemide 20 MG/2 ML VIAL IVP ONE (06:48)
[2017-06-05] MEDS: Aspirin Enteric Coated 81 MG Tablet PO SCH (08:52)
[2017-06-05 09:03] LABS: Estimated Average Glucose 120 mg/dl; Hemoglobin A1C 5.8 %
--- NOTE | 2017-06-05 11:17 | Oncology Inp Consult Note ---
<Caitlin Sauceda L - Last Filed: 06/05/17 18:47> Date of Encounter: 06/05/17 Time of Encounter: 11:31 Assessment and Plan (1) Severe anemia Status: Acute Assessment and plan: Appears to represent acute blood loss anemia, she likely has had a small or undetected GI bleed. She presented with acute microcytic, hypochromic anemia with associated thrombocytosis and iron deficiency, which would be consistent with blood loss Colonoscopy today revealed diverticulosis, otherwise normal. EGD revealed large hiatal hernia and duodenal polyp. Hgb improved to 10 following 4 units PRBC. She is iron deficient secondary to her blood loss, will replace with 400 mg IV Venofer x1. B12 and folate are replete. LDH normal, haptoglobin pending. Will plan for further follow up on outpatient basis with Dr. Thompson to check CBC and iron stores. Please see Dr. Thompson's attestation below for additional details. - Data of Consult Patient: new to practice Consult date: 06/05/17 Requesting Physician: Ghislaine Jay MD Primary Care Provider: Natty Cordon CNP - Consult Narrative Reason for consult: Acute Anemia History of present illness: Ms. Maharaj is a 62 year old female with past medical history significant for HLD and HTN, presented to the ER on 06/04/2017 following instruction from her PCP for hgb of 6.6. She reports SOB and weakness over the past weeks along with 2 episodes of melena about one month ago. She presented to her PCP with report of weakness, fatigue and SOB when her labs revealed acute iron deficiency anemia. She was admitted with anemia and GI consultation, she is planned for upper and lower endoscopy today. Ms. Maharaj is a non smoker. She has no personal history of cancer. She denies recent appetite changes, unintended weight loss, changes in BM, hematochezia, nausea, vomiting or dysphagia. She does report 2 episodes of melena about one month ago. She states she noticed the dark stool after being placed on ibuprofen for worsening back pain. She also states she cannot take naproxen due to issues with associated GI upset. According to patient she had a colonoscopy about 8 years ago with benign findings. She has never had an EGD. Past Med Surg Social Fam HX - Past Medical History Medical history: hyperlipidemia, hypertension Psychiatric history: no psych history - Past Surgical History Surgical History: hysterectomy, knee replacement - Social History Smoking Status: Never smoker Smokeless Tobacco Status: No Alcohol use: none Drug use: none - Family History Father Race: Family Member Ethnicity: Non- Living Status: Age at : 80 Cause of : CHF Hx Family Cardiac Disorders: Yes (CHF, HLD, HTN) Hx Family Respiratory Disorders: Yes (Lung cancer) Hx Family Cancer: Yes (Lung) Hx Family Endocrine Disorder: Yes (DM) Mother Race: Family Member Ethnicity: Non- Living Status: Age at : 89 Cause of : Alzheimer's disease Hx Family Cardiac Disorders: Yes (HLD, HTN) Brother Race: Family Member Ethnicity: Non- Living Status: Still Living Hx Family Cardiac Disorders: Yes (CHF, HTN) Sister Race: Family Member Ethnicity: Non- Living Status: Still Living Hx Family Cardiac Disorders: Yes (HTN, HLD) Hx Family Endocrine Disorder: Yes (DM) Medications and Allergies Aspirin [Lo-Dose Aspirin EC] 81 mg PO DAILY 06/04/17 [History] Atorvastatin [Lipitor] 10 mg PO HS 06/04/17 [History] Calcium Carbonate/Vitamin D3 [Calcium 500 mg Chewable Tablet] 1 tab PO DAILY 01/11 [History] Cranberry 500 mg PO DAILY 06/04/17 [History] Mv,Fe,Min/Lutein [A Thru Z Select Women's Tablet] 1 tab PO DAILY 06/04/17 [ History] [place]-3/Dha/Epa/Fish Oil [Fish Oil 1,000 mg Softgel] 1 cap PO DAILY 06/04/17 [ History] 3 Allergy/AdvReac Type Severity Reaction Status Date / Time naproxen AdvReac Vomiting Verified 06/04/17 12:32 Blood Constitutional: Present: as per HPI, fatigue, headache(s), weakness. Absent: anorexia, fever(s), frequent falls, weight loss Eyes: Absent: change in vision Nose, mouth and throat: Absent: dysphagia Cardiovascular: Present: irregular heart rhythm, palpitations. Absent: chest pain Respiratory: Present: dyspnea. Absent: cough Gastrointestinal: Present: as per HPI Genitourinary: Absent: dysuria, hematuria Musculoskeletal: Present: muscle weakness Integumentary: Absent: wounds Neurological: Absent: focal weakness, frequent falls Psychiatric: Absent: change in appetite Hematologic/Lymphatic: Present: as per HPI Oncology - Exam - Constitutional Vitals: Temp Pulse Resp BP Pulse Ox 98.6 F 64 17 156/82 97 06/05/17 07:05 06/05/17 07:05 06/05/17 07:05 06/05/17 07:05 06/05/17 07:05 General appearance: cooperative, no acute distress, no febrile - Head Head exam: Present: atraumatic - ENT ENT exam: Present: mucous membranes moist - Respiratory Respiratory exam: Present: CTAB. Absent: respiratory distress - Cardiovascular Cardiovascular exam: Present: RRR, +S1, +S2 - GI/Abdominal GI/Abdominal exam: Present: normal bowel sounds, soft. Absent: tenderness - Extremities Exam Extremities exam: Present: normal inspection. Absent: calf tenderness - Neurological Exam Neurological exam: Present: alert, oriented X3, no focal deficits, strengths equal and symetr throughout - Psychiatric Psychiatric exam: Present: normal affect, normal mood - Skin Skin exam: Present: dry, intact, normal color, warm Oncology - Results Labs: Short CBC 06/04/17 06/05/17 Range/Units 15:59 02:34 WBC 6.9 (4.3-11.1) K/mcL Hgb 8.6 L D 10.7 L D (11.5-15.4) g/dL Hct 29.2 L 34.5 L (35.3-44.9) % Plt Count 384 (140-400) K/mcL Neutrophils # 4.7 (1.6-8.9) K/mcL BMP 06/05/17 02:34 Sodium 141 Potassium 3.6 Chloride 108 H Carbon Dioxide 24 BUN 12 Creatinine 0.71 Glucose 112 H Calcium 9.5 Liver Function 06/05/17 Range/Units 02:34 Total Bilirubin 1.1 H (0.3-1.0) mg/dL AST 19 (13-39) Units/L ALT 15 (7-52) Units/L Alkaline Phosphatase 61 (34-104) Units/L Albumin 4.7 (3.5-5.7) g/dL Consult Discharge Plan - Plan Referrals: Natty Cordon, [employer] [Primary Care Provider] - <Moris Thompson - Last Filed: 06/05/17 21:54> Date of Encounter: 06/05/17 - Data of Consult Requesting Physician: Ghislaine Jay MD Primary Care Provider: Natty Cordon CNP - Consult Narrative History of present illness: Ms. Maharaj is a 62 year old female Oncology - Exam - Constitutional Vitals: Temp Pulse Resp BP Pulse Ox 98.8 F 77 17 148/76 92 06/05/17 19:35 06/05/17 19:35 06/05/17 19:35 06/05/17 19:35 06/05/17 19:35 Oncology - Results Labs: Short CBC 06/05/17 Range/Units 02:34 WBC 6.9 (4.3-11.1) K/mcL Hgb 10.7 L D (11.5-15.4) g/dL Hct 34.5 L (35.3-44.9) % Plt Count 384 (140-400) K/mcL Neutrophils # 4.7 (1.6-8.9) K/mcL BMP 06/05/17 02:34 Sodium 141 Potassium 3.6 Chloride 108 H Carbon Dioxide 24 BUN 12 Creatinine 0.71 Glucose 112 H Calcium 9.5 Liver Function 06/05/17 Range/Units 02:34 Total Bilirubin 1.1 H (0.3-1.0) mg/dL AST 19 (13-39) Units/L ALT 15 (7-52) Units/L Alkaline Phosphatase 61 (34-104) Units/L Albumin 4.7 (3.5-5.7) g/dL - Attending Attestation I have seen and examined Ms. Maharaj and agree with Ms. Sauceda's assessment. Ms. Maharaj has a microcytic/hypochromic anemia with indices c/w iron deficiency. This is likely secondary to longstanding occult blood loss. EGD/ colonoscopy essentially unremarkable. She is s/p transfusion and have arranged for IV iron. Would consider outpatient capsular endoscopy, and I will arrange for f/u with me as an outpatient. We will sign. Please call with questions.
[2017-06-05] MEDS: hydroCHLOROthiazide 25 MG TABLET PO SCH (12:06)
[2017-06-05 12:28] LABS: Immature Reticulocyte % 43.5 % (11.0-38.0); Retculocyte # 0.06 M/mcL (0.05-0.10); Reticulocyte % 1.2 % (1.6-2.8)
[2017-06-05 13:11] LABS: Vitamin B12 520 pg/mL (250-1100)
[2017-06-05 13:23] LABS: Folate > 22.3 ng/mL (3.0-16.0)
[2017-06-05] MEDS ORDERED: Propofol 500 MG/50 ML INFUS..BTL ONE (13:23)
[2017-06-05] MEDS ORDERED: Simethicone 40 MG/0.6 ML MLS IR ONE (13:54)
[2017-06-05] MEDS ORDERED: Tetracaine/Benzocaine/Butamben 200MG/SPRAY (100SPY/BOT) MM ONE (13:54)
--- NOTE | 2017-06-05 13:59 | Gastroenterology Consult Note ---
<Fidel Suazo - Last Filed: 06/05/17 13:49> Date of Encounter: 06/05/17 Time of Encounter: 11:20 - Assessment and plan (1) Severe anemia Current Visit: Yes Status: Acute Assessment and plan: Hgb 6.5 on admission and after 4 units of PRBC Hgb 10.7 this AM. Continue to monitor CBC and transfuse PRBC as needed. Plan for EGD and colonoscopy today. (2) Abdominal pain Current Visit: Yes Status: Acute Assessment and plan: Resolved. Continue PPI and plan for EGD and colonoscopy today. Qualifiers: Abdominal location: left upper quadrant Qualified Code(s): R10.12 - Left upper quadrant pain - Time Spent With Patient Total time spent is greater than 50% in coordination of care (as documented) at patient's floor/unit and/or counseling patient: GI History of Present Illness - Data of Consult Patient: new to practice Consult date: 06/05/17 Requesting Physician: Ghislaine Jay MD - Consult Narrative Reason for consult: Anemia History of present illness: Ms. Maharaj is a 62 year old female with PMHx of HTN and HLD who presented to the ED with Hgb 6.5 that was discovered at her PCP office. She reports shortness of breath and weakness for the past week. She also reports 2 episodes of melena one month ago. She complains of left sided abdominal pain as well. She denies fever, chills, chest pain, nausea, vomiting, constipation, diarrhea. We have been consulted to evaluate her anemia. Hgb on admission 6.5, she has received 4 units PRBC and Hgb 10.7 this morning. She denies abdominal pain at this time. Procedures: Colonoscopy 06/16/2008 Dr. Cobb: Three hyperplastic polyps NSAIDs: ASA Anticoagulation: None Past Med Surg Social Fam HX - Past Medical History Medical history: hyperlipidemia, hypertension Psychiatric history: no psych history - Past Surgical History Surgical History: hysterectomy, knee replacement - Social History Smoking Status: Never smoker Smokeless Tobacco Status: No Alcohol use: none Drug use: none - Family History Father Race: Family Member Ethnicity: Non- Living Status: Age at : 80 Cause of : CHF Hx Family Cardiac Disorders: Yes (CHF, HLD, HTN) Hx Family Respiratory Disorders: Yes (Lung cancer) Hx Family Cancer: Yes (Lung) Hx Family Endocrine Disorder: Yes (DM) Mother Race: Family Member Ethnicity: Non- Living Status: Age at : 89 Cause of : Alzheimer's disease Hx Family Cardiac Disorders: Yes (HLD, HTN) Brother Race: Family Member Ethnicity: Non- Living Status: Still Living Hx Family Cardiac Disorders: Yes (CHF, HTN) Sister Race: Family Member Ethnicity: Non- Living Status: Still Living Hx Family Cardiac Disorders: Yes (HTN, HLD) Hx Family Endocrine Disorder: Yes (DM) - Gastrointestinal Gastrointestinal: Present: as per HPI - Constitutional Constitutional: as per HPI - EENT Eyes: as per HPI Ears: Present: as per HPI Nose, mouth and throat: Present: as per HPI - Cardiovascular Cardiovascular ROS: Present: as per HPI - Respiratory Respiratory IM: Present: as per HPI - Genitourinary Genitourinary: Absent: change in color, Urinary frequency - Neurological ROS Neurological GI: Present: as per HPI - Hematologic/Lymphatic Hematologic/Lymphatic pediatric: Present: as per HPI - Musculoskeletal Musculoskeletal ROS GI: Present: as per HPI - Integumentary Integumentary GI: Present: as per HPI - Psychiatric ROS Psychiatric GI: Present: as per HPI - Endocrine Endocrine IM: Present: as per HPI - Constitutional Vitals: Temp Pulse Resp BP Pulse Ox 98.4 F 75 17 175/84 96 06/05/17 11:26 06/05/17 11:26 06/05/17 11:26 06/05/17 11:26 06/05/17 11:26 General appearance: Present: cooperative, A&O X 3, no acute distress, answers questions appropriately - Head Head exam: Present: atraumatic, normocephalic - Eye Eye exam: Present: normal appearance, sclera anicteric - ENT ENT exam: Present: mucous membranes dry - Neck Neck exam general surgery: Present: normal inspection, trachea midline - Respiratory Respiratory exam: Present: CTAB. Absent: rales, rhonchi - Cardiovascular Cardiovascular exam: Present: RRR, +S1, +S2 - GI/Abdominal GI/Abdominal exam: Present: normal bowel sounds, soft, no peritoneal signs. Absent: distended, firm, guarding, tenderness - Rectal Rectal exam: Present: deferred - Extremities Exam Extremities exam: Present: warm - Neurological Exam Neurological exam: Present: no focal deficits - Psychiatric Psychiatric exam: Present: normal affect, normal mood - Skin Skin exam: Present: dry, intact, normal color, warm Results - Labs CBC & Chem 7: 06/05/17 02:34 06/05/17 02:34 Labs: Last Result Calcium 9.5 mg/dL (8.6-10.3) 06/05/17 02:34 Iron 12 mcg/dL (50-170) L 06/04/17 10:44 % Saturation 2 % (15-50) L 06/04/17 10:44 Transferrin 400 mg/dL (203-362) H 06/04/17 10:44 Ferritin 13 ng/ml (10-120) 06/05/17 11:55 Troponin I < 0.03 ng/mL (< 0.04) 06/04/17 10:44 Triglycerides 124 mg/dL (< 150) 06/05/17 02:34 Vitamin B12 520 pg/mL (250-1100) 06/05/17 11:55 Folate > 22.3 ng/mL (3.0-16.0) H 06/05/17 11:55 Entire Visit Hgb 10.7 g/dL (11.5-15.4) L D 06/05/17 02:34 Hct 34.5 % (35.3-44.9) L 06/05/17 02:34 PT 11.4 Seconds (9.4-12.1) 06/05/17 02:34 Ferritin 13 ng/ml (10-120) 06/05/17 11:55 Total Bilirubin 1.1 mg/dL (0.3-1.0) H 06/05/17 02:34 AST 19 Units/L (13-39) 06/05/17 02:34 ALT 15 Units/L (7-52) 06/05/17 02:34 Folate > 22.3 ng/mL (3.0-16.0) H 06/05/17 11:55 - ABG ABG results: PT/INR, D-dimer PT 11.4 Seconds (9.4-12.1) 06/05/17 02:34 Consult Discharge Plan - Plan Referrals: Natty Cordon, [employer]AYER [Primary Care Provider] - <Alfredo Carrillo - Last Filed: 06/05/17 17:37> Date of Encounter: 06/05/17 Time of Encounter: 14:20 - Time Spent With Patient Total time spent is greater than 50% in coordination of care (as documented) at patient's floor/unit and/or counseling patient: GI History of Present Illness - Data of Consult Requesting Physician: Ghislaine aJy MD - Consult Narrative History of present illness: Ms. Maharaj is a 62 year old female - Constitutional Vitals: Temp Pulse Resp BP Pulse Ox 98.1 F 73 16 150/76 97 06/05/17 15:25 06/05/17 15:25 06/05/17 13:40 06/05/17 15:25 06/05/17 15:25 Results - Labs CBC & Chem 7: 06/05/17 02:34 06/05/17 02:34 Labs: Last Result Calcium 9.5 mg/dL (8.6-10.3) 06/05/17 02:34 Iron 12 mcg/dL (50-170) L 06/04/17 10:44 % Saturation 2 % (15-50) L 06/04/17 10:44 Transferrin 400 mg/dL (203-362) H 06/04/17 10:44 Ferritin 13 ng/ml (10-120) 06/05/17 11:55 Troponin I < 0.03 ng/mL (< 0.04) 06/04/17 10:44 Triglycerides 124 mg/dL (< 150) 06/05/17 02:34 Vitamin B12 520 pg/mL (250-1100) 06/05/17 11:55 Folate > 22.3 ng/mL (3.0-16.0) H 06/05/17 11:55 Entire Visit Hgb 10.7 g/dL (11.5-15.4) L D 06/05/17 02:34 Hct 34.5 % (35.3-44.9) L 06/05/17 02:34 PT 11.4 Seconds (9.4-12.1) 06/05/17 02:34 Ferritin 13 ng/ml (10-120) 06/05/17 11:55 Total Bilirubin 1.1 mg/dL (0.3-1.0) H 06/05/17 02:34 AST 19 Units/L (13-39) 06/05/17 02:34 ALT 15 Units/L (7-52) 06/05/17 02:34 Folate > 22.3 ng/mL (3.0-16.0) H 06/05/17 11:55 - ABG ABG results: PT/INR, D-dimer PT 11.4 Seconds (9.4-12.1) 06/05/17 02:34 - Attending Attestation I have personally performed a face to face evaluation on this patient. I have reviewed and agree with the care plan. History and Exam by me shows: Rene seen. Anemia with no overt bleeding. Recommendation: EGD and colon today
--- NOTE | 2017-06-05 14:18 | Anesthesia Evaluation PreOp ---
Date of Encounter: 06/05/17 Time of Encounter: 14:15 - Past History Planned Operation: EGD, Colonoscopy Cardiac History: HTN, Hyperlipidemia Pulmonary History: Denies Any Significant HX DIVISION TRAFFIC SUPERINTENDENT History: Denies Any Significant HX Other Medical History: Bleeding (melena) Anesthesia History: No Prior Anesthetic Complications (denies personal and family h/o GA complications) : No Alcohol Use: none Drug use: none Medications and Allergies Aspirin [Lo-Dose Aspirin EC] 81 mg PO DAILY 06/04/17 [History] Atorvastatin [Lipitor] 10 mg PO HS 06/04/17 [History] Calcium Carbonate/Vitamin D3 [Calcium 500 mg Chewable Tablet] 1 tab PO DAILY 01/11 [History] Cranberry 500 mg PO DAILY 06/04/17 [History] Mv,Fe,Min/Lutein [A Thru Z [employer] Women's Tablet] 1 tab PO DAILY 06/04/17 [ History] [place]-3/Dha/Epa/Fish Oil [Fish Oil 1,000 mg Softgel] 1 cap PO DAILY 06/04/17 [ History] 3 Allergy/AdvReac Type Severity Reaction Status Date / Time naproxen AdvReac Vomiting Verified 06/04/17 12:32 Blood - Meds/Allergy Pre-op Review Medications Reviewed: Yes Allergies Reviewed: Yes Beta Blockers on Current Med List: No Anesthesia Results - Labs 06/05/17 02:34 06/05/17 02:34 Anesthesia Exam O2 Sat Height 1.65 m Weight 86.409 kg Weight 89.499 kg O2 Sat by Pulse Oximetry 98 O2 Sat by Pulse Oximetry 96 O2 Sat by Pulse Oximetry 97 O2 Sat by Pulse Oximetry 96 O2 Sat by Pulse Oximetry 98 O2 Sat by Pulse Oximetry 96 O2 Sat by Pulse Oximetry 98 O2 Sat by Pulse Oximetry 99 O2 Sat by Pulse Oximetry 99 O2 Sat by Pulse Oximetry 99 O2 Sat by Pulse Oximetry 99 O2 Sat by Pulse Oximetry 99 O2 Sat by Pulse Oximetry 98 O2 Sat by Pulse Oximetry 100 O2 Sat by Pulse Oximetry 100 O2 Sat by Pulse Oximetry 100 O2 Sat by Pulse Oximetry 100 Vital Signs Temp Pulse Resp BP Pulse Ox 98.3 F 82 18 162/77 97 06/04/17 10:09 06/04/17 10:09 06/04/17 10:09 06/04/17 10:09 06/04/17 10:09 NPO (# of Hours): >8hrs Pain Scale: 0 Pain Scale Used: Numeric (1 - 10) - HEENT Pupil (Motor): Pupils equal Mallampati: II Oral Opening: Greater than 3 - DIVISION TRAFFIC SUPERINTENDENT LOC: Oriented [employer]ISION [employer]IC SUPERINTENDENT Motor: Normal RUE, Normal LUE, Normal RLE, Normal LLE, Normal Face [employer]IC SUPERINTENDENT Sensory: Normal: RUE, LUE, RLE, LLE, Face - Cardiac Rhythm: Regular Murmur: Systolic - Pulmonary Breath Sounds: bilateral Clear Respiratory Effort: Symmetrical Anesthesia Assess/Plan ASA Score: 2 Modified [place] Scale for Level of Consciousness: Cooperative, oriented, and tranquil Anesthetic Plan: MAC Autologous Blood: No Monitoring Plan: Standard Monitors Recovery Plan: Other
--- NOTE | 2017-06-05 16:07 | Internal Med Progress Note ---
Date of Encounter: 06/05/17 Time of Encounter: 13:23 - Assessment and plan (1) Severe anemia Current Visit: Yes Status: Acute Assessment and plan: secondary to GI bleed GI on board and evaluation appreciated scheduled for EGD and colonoscopy today (06/05/17) s/p 4unit PRBC transfusion (06/04/17) repeat H&H within acceptable range Hematology evaluation appreciated will closely monitor H&H iron studies consistent with iron deficiency anemia started on ferrous sulfate (2) HTN (hypertension) Current Visit: Yes Status: Chronic Assessment and plan: BP within acceptable range after taking home meds will continue home meds and closely monitor Qualifiers: Hypertension type: essential hypertension Qualified Code(s): I10 - Essential (primary) hypertension (3) HLD (hyperlipidemia) Current Visit: Yes Status: Chronic Assessment and plan: continue home dose of lipitor Qualifiers: Hyperlipidemia type: pure hypercholesterolemia Qualified Code(s): E78.00 - Pure hypercholesterolemia, unspecified; E78.0 - Pure hypercholesterolemia (4) DVT prophylaxis Current Visit: Yes Status: Acute Assessment and plan: SCDs (5) Abdominal pain Current Visit: Yes Status: Resolved Assessment and plan: resolved at this time Qualifiers: Abdominal location: left upper quadrant Qualified Code(s): R10.12 - Left upper quadrant pain (6) SOB (shortness of breath) Current Visit: Yes Status: Resolved Assessment and plan: likely secondary to acute blood loss anemia - Time Spent With Patient Total time spent is greater than 50% in coordination of care (as documented) at patient's floor/unit and/or counseling patient: - Subjective Interval history: Pt seen and examined with family present at bedside. Pt denies any discomfort at this time Scheduled for EGD and colonoscopy today (06/05/17) - Constitutional Vitals: Temp Pulse Resp BP Pulse Ox 98.1 F 73 16 150/76 97 06/05/17 15:25 06/05/17 15:25 06/05/17 13:40 06/05/17 15:25 06/05/17 15:25 General appearance: Present: cooperative, A&O X 3, pleasant, no acute distress, obese, answers questions appropriately - Head Head exam: Present: atraumatic, normocephalic - Eye Eye exam: Present: conjuntiva pink, sclera anicteric - Respiratory Respiratory exam: Present: CTAB. Absent: accessory muscle use, rales, rhonchi, wheezes - Cardiovascular Cardiovascular exam: Present: RRR, +S1, +S2. Absent: diastolic murmur, gallop, rubs, systolic murmur - GI/Abdominal GI/Abdominal exam: Present: normal bowel sounds, soft, no peritoneal signs. Absent: distended, tenderness - Extremities Exam Extremities exam: Present: warm, radial pulses palpable and symmetrical. Absent : calf tenderness, pedal edema - Neurological Exam Neurological exam: Present: oriented X3 Internal Medicine: Result - Labs CBC & Chem 7: 06/05/17 02:34 06/05/17 02:34 Labs: Short CBC 06/04/17 06/05/17 Range/Units 15:59 02:34 WBC 6.9 (4.3-11.1) K/mcL Hgb 8.6 L D 10.7 L D (11.5-15.4) g/dL Hct 29.2 L 34.5 L (35.3-44.9) % Plt Count 384 (140-400) K/mcL Neutrophils # 4.7 (1.6-8.9) K/mcL BMP 06/05/17 02:34 Sodium 141 Potassium 3.6 Chloride 108 H Carbon Dioxide 24 BUN 12 Creatinine 0.71 Glucose 112 H Calcium 9.5 Liver Function 06/05/17 Range/Units 02:34 Total Bilirubin 1.1 H (0.3-1.0) mg/dL AST 19 (13-39) Units/L ALT 15 (7-52) Units/L Alkaline Phosphatase 61 (34-104) Units/L Albumin 4.7 (3.5-5.7) g/dL - ABG Interpretation ABG results: PT/INR, D-dimer PT 11.4 Seconds (9.4-12.1) 06/05/17 02:34 - VTE Documentation of Mechanical Device: Intermittent pneumatic compression device Consult Discharge Plan - Plan Referrals: Natty Cordon CNP [Primary Care Provider] -
[2017-06-05] MEDS: Pantoprazole 40 MG VIAL IVP SCH (17:42)
[2017-06-05] MEDS ORDERED: Iron Sucrose Complex 400 MG in 0.9 % Sodium Chloride 250 ML IVPB ONE (18:53)
[2017-06-06 05:58] LABS: Basophils # 0.1 K/mcL (0.0-0.2); Basophils % 0.4 %; Eosinophils # 0.1 K/mcL (0.0-0.6); Eosinophils % 0.7 %; Hematocrit 34.9 % (35.3-44.9); Immature Granulocytes % 0.6 % (0-4); Lymphocytes # 1.3 K/mcL (0.6-4.6); Lymphocytes % 8.1 %; Mean Corpuscular HGB Conc 31.5 g/dL (31.6-35.5); Mean Corpuscular Hemoglobin 24.4 pg (28.0-33.3); Mean Corpuscular Volume 77.6 fL (83.0-100.0); Mean Platelet Volume 9.4 fL (9.4-12.4); Monocytes # 0.8 K/mcL (0.0-1.3); Monocytes % 4.8 %; Platelet Count 360 K/mcL (140-400); Red Cell Distribution Width 19.2 % (11.5-14.5); Segmented Neutrophils % 85.4 %
[2017-06-06 06:01] LABS: Neutrophils # 13.8 K/mcL (1.6-8.9)
[2017-06-06 06:18] LABS: Magnesium 2.1 mg/dL (1.6-2.6); Phosphorous 4.4 mg/dL (2.7-4.5)
[2017-06-06 06:19] LABS: Alanine Aminotransferase 15 Units/L (7-52); Albumin/Globulin Ratio 1.7 (1.1-2.2); Alkaline Phosphatase 51 Units/L (34-104); Aspartate Amino Transferase 19 Units/L (13-39); BUN/Creatinine Ratio 17 (6-26); Bilirubin,Total 0.9 mg/dL (0.3-1.0); Blood Urea Nitrogen 13 mg/dL (8-23); Calcium 9.1 mg/dL (8.6-10.3); Carbon Dioxide 25 mEq/L (23-29); Chloride 103 mEq/L (98-107); Globulin 2.4 g/dL (2.4-3.5); Glucose 112 mg/dL (70-105); Osmolality,Calculated 287 (280-300); Potassium 3.2 mEq/L (3.5-5.1); Sodium 138 mEq/L (136-145); Total Protein 6.4 g/dL (6.4-8.9); eGFR For African Americans > 60 (> 60); eGFR For Non-African Americans > 60 (> 60)
[2017-06-06] MEDS: Pantoprazole 40 MG VIAL IVP SCH (06:31)
--- NOTE | 2017-06-06 07:21 | Electrocardiograph Report ---
[facility] Test Date: 2017-06-04 Pat Name: Georgia Maharaj Department: 104 Room: 2A47 Gender: F Financial Professional: AM : 1955 Requested By: Ady Camacho Order Number: [id number] Reading MD: Stacie Tong Measurements Intervals [place] Rate: 82 P: 30 WI: 152 QRS: -1 QRSD: 89 T: -2 QT: 374 QTc: 413 Interpretive Statements SINUS RHYTHM LOW QRS VOLTAGE IN PRECORDIAL LEADS POSSIBLE RIGHT VENTRICULAR CONDUCTION DELAY POSSIBLE ANTERIOR MYOCARDIAL INFARCTION, OF INDETERMINATE AGE WARNING: DATA QUALITY MAY AFFECT INTERPRETATION Electronically Signed On 06-06-2017 7:19:22 EDT by Stacie Tong
[2017-06-06] MEDS: hydroCHLOROthiazide 25 MG TABLET PO SCH (07:36)
--- NOTE | 2017-06-06 10:51 | Internal Med Progress Note ---
Date of Encounter: 06/06/17 Time of Encounter: 10:47 - Assessment and plan (1) Severe anemia Current Visit: Yes Status: Acute Assessment and plan: secondary to GI bleed???. Scopes with no source of active bleed. ?? diverticular bleed. H/H stable this morning. s/p 4 units PRBCs this visit. Will continue to monitor H/H. Patient is iron deficient. Will give IV iron again today. switch to oral PPI. Appreciat GI and heme/onc help. (2) Leukocytosis Current Visit: Yes Status: Acute Assessment and plan: ?? etiology. T max of 100.1. check UA. given borderline hypoxia and shortness of breath, will check a CXR. possibly reactive post scopes Qualifiers: Leukocytosis type: unspecified Qualified Code(s): D72.829 - Elevated white blood cell count, unspecified (3) HTN (hypertension) Current Visit: Yes Status: Chronic Assessment and plan: BP within acceptable range after taking home meds will continue home meds and closely monitor Qualifiers: Hypertension type: essential hypertension Qualified Code(s): I10 - Essential (primary) hypertension (4) HLD (hyperlipidemia) Current Visit: Yes Status: Chronic Assessment and plan: continue home dose of lipitor Qualifiers: Hyperlipidemia type: pure hypercholesterolemia Qualified Code(s): E78.00 - Pure hypercholesterolemia, unspecified; E78.0 - Pure hypercholesterolemia (5) Abdominal pain Current Visit: Yes Status: Resolved Assessment and plan: resolved at this time Qualifiers: Abdominal location: left upper quadrant Qualified Code(s): R10.12 - Left upper quadrant pain (6) SOB (shortness of breath) Current Visit: Yes Status: Resolved Assessment and plan: likely secondary to anemia (7) DVT prophylaxis Current Visit: Yes Status: Acute Assessment and plan: SCDs - Time Spent With Patient Total time spent is greater than 50% in coordination of care (as documented) at patient's floor/unit and/or counseling patient: - Subjective Interval history: Patient was seen and examined. No acute events. Admitted with low blood counts. EGD and colonoscopy were done yesterday were unrevealing for any acute findings of an active bleed. MAXIMUM TEMPERATURE 100.1. - Constitutional Vitals: Temp Pulse Resp BP Pulse Ox 99.3 F 80 18 129/72 92 06/06/17 07:21 04/13/18 07:21 06/06/17 07:21 06/06/17 07:21 06/06/17 07:21 General appearance: Present: cooperative, A&O X 3, pleasant, no acute distress, obese, answers questions appropriately Exam: GEN: NAD CVS: RRR. S1, S2, No m/r/g RESP: CTAB ABD: Soft, NT, ND, +BS EXT: No edema. 2+ DP. No rashes NEURO: Nonfocal Internal Medicine: Result - Labs CBC & Chem 7: 06/06/17 05:23 06/06/17 05:23 Labs: Short CBC 06/06/17 Range/Units 05:23 WBC 16.1 H D (4.3-11.1) K/mcL Hgb 11.0 L (11.5-15.4) g/dL Hct 34.9 L (35.3-44.9) % Plt Count 360 (140-400) K/mcL Neutrophils # 13.8 H (1.6-8.9) K/mcL BMP 06/06/17 05:23 Sodium 138 Potassium 3.2 L Chloride 103 Carbon Dioxide 25 BUN 13 Creatinine 0.75 Glucose 112 H Calcium 9.1 Liver Function 06/06/17 Range/Units 05:23 Total Bilirubin 0.9 (0.3-1.0) mg/dL AST 19 (13-39) Units/L ALT 15 (7-52) Units/L Alkaline Phosphatase 51 (34-104) Units/L Albumin 4.0 (3.5-5.7) g/dL - ABG Interpretation ABG results: PT/INR, D-dimer PT 11.4 Seconds (9.4-12.1) 06/05/17 02:34 - VTE Documentation of Mechanical Device: Intermittent pneumatic compression device Consult Discharge Plan - Plan Referrals: Natty Cordon CNP [Primary Care Provider] -
[2017-06-06] MEDS ORDERED: Iron Sucrose Complex 400 MG in 0.9 % Sodium Chloride 250 ML IVPB ONE (10:52)
[2017-06-06 12:04] LABS: Bilirubin,Urine Negative (Negative); Blood,Urine Negative (Negative); Clarity,Urine Cloudy (Clear); Color,Urine Yellow (Yellow); Glucose,Urine (UA) 100 mg/dL (Normal); Ketones,Urine Negative (Negative); Leukocyte Esterase,Urine Moderate (Negative); Nitrite,Urine Negative (Negative); Protein,Urine Negative (Neg-Trace); Urobilinogen,Urine Normal (Normal)
[2017-06-06 12:07] LABS: Bacteria,Urine Few per hpf (None-Few); Hyaline Casts,Urine None Seen per lpf (None-Few); RBC,Urine 0-3 per hpf (0-3); Squamous Epithelial Cell,Urine Many per lpf (None-Few)
[2017-06-07 06:03] LABS: Basophils # 0.1 K/mcL (0.0-0.2); Basophils % 0.8 %; Eosinophils # 0.3 K/mcL (0.0-0.6); Eosinophils % 3.5 %; Hematocrit 36.6 % (35.3-44.9); Hemoglobin 11.1 g/dL (11.5-15.4); Immature Granulocytes % 0.4 % (0-4); Lymphocytes # 1.8 K/mcL (0.6-4.6); Lymphocytes % 19.5 %; Mean Corpuscular HGB Conc 30.3 g/dL (31.6-35.5); Mean Corpuscular Hemoglobin 23.9 pg (28.0-33.3); Mean Corpuscular Volume 78.7 fL (83.0-100.0); Mean Platelet Volume 9.2 fL (9.4-12.4); Monocytes # 0.6 K/mcL (0.0-1.3); Neutrophils # 6.2 K/mcL (1.6-8.9); Platelet Count 329 K/mcL (140-400); Red Blood Count 4.65 M/mcL (3.82-4.97); Segmented Neutrophils % 68.8 %
[2017-06-07 06:31] LABS: Alanine Aminotransferase 14 Units/L (7-52); Albumin 4.1 g/dL (3.5-5.7); Albumin/Globulin Ratio 1.6 (1.1-2.2); Alkaline Phosphatase 55 Units/L (34-104); Aspartate Amino Transferase 18 Units/L (13-39); BUN/Creatinine Ratio 25 (6-26); Bilirubin,Total 0.6 mg/dL (0.3-1.0); Blood Urea Nitrogen 17 mg/dL (8-23); Calcium 9.2 mg/dL (8.6-10.3); Carbon Dioxide 23 mEq/L (23-29); Chloride 107 mEq/L (98-107); Globulin 2.5 g/dL (2.4-3.5); Glucose 104 mg/dL (70-105); Magnesium 2.2 mg/dL (1.6-2.6); Osmolality,Calculated 292 (280-300); Potassium 3.6 mEq/L (3.5-5.1); Sodium 140 mEq/L (136-145); Total Protein 6.6 g/dL (6.4-8.9); eGFR For African Americans > 60 (> 60); eGFR For Non-African Americans > 60 (> 60)
[2017-06-07 07:09] VITALS: BP 128/78
[2017-06-07] MEDS: Aspirin Enteric Coated 81 MG Tablet PO SCH (07:15)
[2017-06-07] MEDS: hydroCHLOROthiazide 25 MG TABLET PO SCH (07:15)
[2017-06-07] MEDS ORDERED: Iron Sucrose Complex 400 MG in 0.9 % Sodium Chloride 250 ML IVPB ONE (10:21)
--- NOTE | 2017-06-07 10:30 | Discharge Summary ---
- NOTES TO OUTPATIENT PROVIDER Notes to Outpatient Provider: Diagnosed with iron deficiency anemia. Received 3 doses of IV iron while hospitalized. Discharged on oral supplements. EGD and colonoscopy wiht no source of bleed. biopsy of gastritis is pending still at time of discharge. Needs to follow up with GI for video capsule study. Started on HCTZ for elevated BP Orders not resulted at time of discharge: Pending orders 06/05/17 14:44 Surgical Pathology [PTH] Routine Date of Encounter: 06/07/17 Time of Encounter: 10:28 - Discharge Diagnosis (1) Severe anemia Priority: Primary Status: Acute (2) Leukocytosis Priority: Primary Status: Acute Qualifiers: Leukocytosis type: unspecified Qualified Code(s): D72.829 - Elevated white blood cell count, unspecified (3) HTN (hypertension) Priority: Secondary Status: Chronic Qualifiers: Hypertension type: essential hypertension Qualified Code(s): I10 - Essential (primary) hypertension (4) HLD (hyperlipidemia) Priority: Secondary Status: Chronic Qualifiers: Hyperlipidemia type: pure hypercholesterolemia Qualified Code(s): E78.00 - Pure hypercholesterolemia, unspecified; E78.0 - Pure hypercholesterolemia (5) Abdominal pain Priority: Primary Status: Resolved Qualifiers: Abdominal location: left upper quadrant Qualified Code(s): R10.12 - Left upper quadrant pain (6) SOB (shortness of breath) Priority: Primary Status: Resolved Hospital course: Ms. Maharaj is a 62 year old female w/PMH of HLD and HTN presented from the ED w /CC of low Hgb discovered at pts. PCP office. Pt. was sent to ED d/t Hgb of 6.5 today. Pt. reports SOB and weakness for the past week. Also reports episodes x2 of melanotic stool one month ago. Pt. she was admitted and transfused 4 units of PRBCs with her hemoglobin appropriately responding. She was noted to have iron deficiency anemia. She was seen by GI who performed an upper and lower scopes with no active bleed noted. EGD showed a duodenal polyp and gastric mucosal atrophy which was biopsied. Colonoscopy showed diverticulosis. She remained hemodynamically stable. She had mild elevation of WBCs around 16 post scopes and resolved with no intervention. She was afebrile. She was discharged on iron supplements with a follow up with GI for video capsule study. She received 3 doses of IV iron while here. She was noted to have consistently elevated BP and was started on HCTZ 12.5 mg. BP improved after. - Time Spent with Patient Total time spent providing and/or coordinating discharge services: Greater than 30 minutes - Discharge Medications Prescriptions: Ferrous Sulfate 325 mg PO DAILY@0800 #30 tablet hydroCHLOROthiazide [Hydrochlorothiazide] 12.5 mg PO DAILY #30 tablet Home Medications: Aspirin [Lo-Dose Aspirin EC] 81 mg PO DAILY 06/04/17 [History] Atorvastatin [Lipitor] 10 mg PO HS 06/04/17 [History] Calcium Carbonate/Vitamin D3 [Calcium 500 mg Chewable Tablet] 1 tab PO DAILY 01/11 [History] Cranberry 500 mg PO DAILY 06/04/17 [History] Mv,Fe,Min/Lutein [A Thru Z [employer] Women's Tablet] 1 tab PO DAILY 06/04/17 [ History] [place]-3/Dha/Epa/Fish Oil [Fish Oil 1,000 mg Softgel] 1 cap PO DAILY 06/04/17 [ History] Ferrous Sulfate 325 mg PO DAILY@0800 #30 tablet 06/07/17 [Rx] hydroCHLOROthiazide [Hydrochlorothiazide] 12.5 mg PO DAILY #30 tablet 06/07/17 [ Rx] Allergies/Adverse Reactions: 3 Allergy/AdvReac Type Severity Reaction Status Date / Time naproxen AdvReac Vomiting Verified 06/04/17 12:32 Blood Date of admission: 06/04/17 15:42 Primary care physician: Natty Cordon CNP Consults: 06/04/17 15:53 Consult to Gastroenterology [CONS] Routine Consulting Provider: Gastroenterology Zaina Reason for Consult: Patient has Hgb of 6.5 today requiring transfusion of PRBCs. Reports two episodes of black stools one month ago. Stated she had a colonoscopy eight years ago which showed three polyps and diverticulosis. CT of abdomen/pelvis today shows no acute findings within the abdomen or pelvis. Colonic diverticulosis with no acute features. No CT evidence of appendicitis. Moderate size hiatal hernia. Previous hysterectomy. Call Completed: Yes Consult to Oncology Hematology [CONS] Routine Consulting Provider: Caitlin Sauceda Reason for Consult: Patient has Hgb of 6.5 today. Reports transfusions in 2011 following orthopedic knee surgery but denies history of anemia. Patient received 1 unit of PRBCs in ED. Patient reports lower back pain when bending over which began in February. Patient also reports left abdominal pain and 2 episodes of black stool one month ago. GI consulted. Call Completed: Yes - Constitutional Vitals: Temp Pulse Resp BP Pulse Ox 97.8 F 65 17 128/78 94 06/07/17 07:06 06/07/17 07:06 06/07/17 07:06 06/07/17 07:06 06/07/17 07:06 General appearance: Present: cooperative, A&O X 3, pleasant, no acute distress, obese, answers questions appropriately Exam: GEN: NAD CVS: RRR. S1, S2, No m/r/g RESP: CTAB ABD: Soft, NT, ND, +BS EXT: No edema. 2+ DP. No rashes NEURO: Nonfocal - Patient Status Disposition: Home, Self-Care Condition: Fair Overall status at discharge: patient is progressing back to baseline - Ambulatory Orders Ambulatory Orders: Complete Blood Count [HEME] Time Frame: 3 Weeks, Facility: [facility], Location: Lab Ferritin [CHEM] Time Frame: 3 Weeks, Facility: [facility], Location: Lab Iron Profile [CHEM] Time Frame: 3 Weeks, Facility: [facility] , Location: Lab - Discharge Instructions Instructions: Ascorbic Acid/Cyanocobalamin/Ferrous Fumarate (By mouth) Follow Up With: Natty Cordon CNP [Primary Care Provider] - (web request sent, but if you do not hear from your doctors by Friday morning please call and schedule a hospital follow up for 5-7 days out. Thank you!) Alfredo Carrillo MD [Partnered Physician] - (web request sent, but if you do not hear from your doctors by Friday morning please call and schedule a hospital follow up for 5-7 days out. Thank you!) - Diet and Activity Activity: increase activity as tolerated Diet: low salt diet - VTE Documentation of Mechanical Device: Intermittent pneumatic compression device
== END 2017-06-07 14:07 | disposition home or self-care (01) | DRG 812 ==
LOC: EMEROO 09:53 → 2ANU 09:53
PROVIDERS: ADMIT Internal Medicine; ATTEND Internal Medicine
PROC: ENDOEBX (2017-06-05 14:00)